=== PATIENT | female | born 2000 | race Caucasian/White ===

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

== ENCOUNTER 2023-12-05 05:06 | Emergency (ER) | payer MEDICAID ==
[2023-12-05 05:25] VITALS: BP 148/48
[2023-12-05] MEDS: methylPREDNISolone Sodium Succinate 125 MG/2 ML SDV IM ONE (05:27)
[2023-12-05] MEDS: Albuterol/Ipratropium 3.0-0.5 MG/3 ML Neb Soln NEB ONE (05:27)
[2023-12-05 05:45] VITALS: PULSE 117
== END 2023-12-05 06:00 | disposition home or self-care (01) ==
LOC: FB.ED 05:06
DX: J45.901 Unspecified asthma with (acute) exacerbation (principal); Z91.048 Other nonmedicinal substance allergy status; Z79.899 Other long term (current) drug therapy; Z88.0 Allergy status to penicillin
CPT/HCPCS: 94640; 96372; 99284; J2930; J7620

== ENCOUNTER 2025-06-17 20:51 | Emergency (ER) | payer MEDICAID ==
[2025-06-17 21:37] VITALS: BP 114/68; PULSE 85
== END 2025-06-17 21:29 | disposition home or self-care (01) ==
LOC: FB.ED 20:51
DX: J45.41 Moderate persistent asthma with (acute) exacerbation (principal); Z88.0 Allergy status to penicillin; Z79.899 Other long term (current) drug therapy
CPT/HCPCS: 94640; 99283; A9270-GY; J7512